=== PATIENT | female | born 1965 | race Caucasian/White ===

== ENCOUNTER 2025-01-17 09:01 | Inpatient (IN) ==
--- NOTE | 2024-05-24 15:42 | PAT Medication Instructions ---
Medication Instructions Date of Service May 24, 2024 Home Medications garlic 1,000 mg capsule 1,000 mg PO QAM Multivitamin Women 50 Plus) 1 tab PO QAM naproxen 250 mg tablet 250 mg PO UD PRN prn omega-3 fatty acids 1,000 mg PO QAM ASK your surgeon for instructions naproxen 250 mg tablet 250 mg PO UD PRN prn STOP taking 2 weeks before surgery (or as soon as possible if surgery is within 2 weeks) garlic 1,000 mg capsule 1,000 mg PO QAM omega-3 fatty acids 1,000 mg PO QAM DO NOT take the morning of surgery Multivitamin Women 50 Plus) 1 tab PO QAM NOTHING TO EAT OR DRINK AFTER MIDNIGHT Other Notes If you have any questions please call us at [phone] or [phone] or [phone] or [phone]
--- NOTE | 2024-12-18 08:49 | PAT Medication Instructions ---
Medication Instructions Date of Service December 18, 2024 Home Medications garlic 1,000 mg capsule 1,000 mg PO QAM [id number] 8 mg-folic 400 mcg-K 50 mcg-lutein 300 mcg tablet (Multivitamin Women 50 Plus) 1 tab PO QAM naproxen 250 mg tablet 500 mg PO BID omega-3 fatty acids 1,000 mg PO QAM black cohosh 200 mg capsule 200 mg PO DAILY ASK your surgeon for instructions naproxen 250 mg tablet 500 mg PO BID STOP taking 2 weeks before surgery (or as soon as possible if surgery is within 2 weeks) garlic 1,000 mg capsule 1,000 mg PO QAM omega-3 fatty acids 1,000 mg PO QAM black cohosh 200 mg capsule 200 mg PO DAILY DO NOT take the morning of surgery Multivitamin Women 50 Plus 1 tab PO QAM MORNING OF SURGERY: NOTHING TO EAT OR DRINK AFTER MIDNIGHT Other Notes If you have any questions please call us at [phone] or [phone] or [phone] or [phone]
--- NOTE | 2024-12-21 09:26 | Anesthesiology Consultation ---
Date of Service December 21, 2024 Assessment & Plan (1) Encounter for pre-operative examination: - Infectious disease screening: Per assessment on 12/21/24- No known recent infectious disease contacts or current infectious disease symptoms. - Patient acceptable risk for surgery pending surgeon-ordered PCP preop evaluation (Dr. Tatum Salas/[facility] Jessica Strickland, appt 12/26). Chart Review Chart Review: Patient seen in Pre Admission Testing Teaching & Discussion Pre-Anesthesia Teaching/Discussion Notes: Instructed NPO after midnight before surgery,except medications with 15 cc of water. Medication instructions provided according to the PAT guidelines. History Surgery Operation Date: 06/19/24 07:45 Proposed Procedures p L4-L5 Decompression and Fusion Spinal Cord Monitoring - Dakota Willams DO Operation Date: 01/17/25 07:45 Proposed Procedures p L4-L5 Decompression and Fusion with Spinal Cord Monitoring - Dakota Willams DO Height/Weight Height: 5 ft 6 in Weight: 85.2 kg Allergies Allergy/AdvReac Type Severity Reaction Status Date / Time No Known Allergies Allergy Verified 12/07/24 15:32 Medications Home Medications Medication Instructions Recorded Confirmed Last Taken garlic 1,000 mg capsule 1,000 mg PO QAM 05/23/24 12/07/24 Unknown [id number] 8 mg-folic 400 1 tab PO QAM 05/23/24 12/07/24 Unknown mcg-K 50 mcg-lutein 300 mcg tablet (Multivitamin Women 50 Plus) naproxen 250 mg tablet 500 mg PO BID 05/23/24 12/07/24 Unknown omega-3 fatty acids 1,000 mg PO QAM 05/23/24 12/07/24 Unknown black cohosh 200 mg capsule 200 mg PO DAILY 12/07/24 12/07/24 Unknown Past Medical History Medical History Bulging lumbar disc Hx of cardiac murmur states as a young adult- no issues Lumbar radiculopathy, right RLE pain Scoliosis "Slight" Exercise / Class Metabolic Activity II 4-5 Yardwork/Stairs/Walk up hill (one FS: No CP, no SOB) Past Surgical History Surgical History History of colonoscopy (2022) History of tonsillectomy History of wisdom tooth extraction Past Anesthesia History No Hx of Anesthesia Complications and No Family Hx of Anesthesia Complications History of PONV No Hx of PONV and No Hx of Motion Sickness Social History Smoking Status: Never smoker Do You Dip or Chew Tobacco: No Hx Alcohol Use: Yes Alcohol type: wine alcohol intake frequency: a few times a week Alcohol Intake Frequency Comment: 1-2 per week Hx Substance Use: No substance use type: does not use Review of Systems Patient denies chest pain, shortness of breath, dyspnea on exertion, fever, chills, cough, wheezing. Physical Exam Vital Signs BP 128/67 P 81 TEMP 97.6 SP02 99%RA RESP 16 Physical Full cervical extension range of motion. Full TMJ range of motion. TMD 3 finger breaths Mallampati Score I Dentition: intact, several crowns, + bridge #7-9 (upper front), implant #30 Lungs: clear throughout to auscultation Cardiac: regular rate and rhythm, no murmurs noted Spine: normal Carotid arteries: negative bruit Extremities: no LE edema Lab Results Anesthesia Preop Results Results Anesthesia Widget: WBC 4.50 K/ul (4.8-10.8) L 12/21/24 Hgb 12.2 g/dl (12.0-16.0) 12/21/24 Hct 34.9 % (37.0-47.0) L 12/21/24 Plt 178 K/uL (130-400) 12/21/24 Na 140 mmol/L (136-145) 12/21/24 K 4.0 mmol/L (3.5-5.1) 12/21/24 Cl 105 mmol/L (98-107) 12/21/24 CO2 29 mmol/L (21-32) 12/21/24 BUN 13 mg/dl (6-23) 12/21/24 Creat 0.72 mg/dl (0.6-1.2) 12/21/24 Glucose Level 86 mg/dl (70-99(Fasting)) 12/21/24 PT 10.6 Seconds (9.0-12.0) 12/21/24 PTT 24 Seconds (21-31) 12/21/24 INR 1.0 (0.9-1.1) 12/21/24 Urine Color Yellow 12/21/24 Urine Appearance Clear (Clear) 12/21/24 Urine pH 7.0 (4.5-7.5) 12/21/24 Urine Specific [place] 1.008 (1.000-1.030) 12/21/24 Urine Protein Negative (Negative) 12/21/24 Urine Glucose (UA) Negative (Negative) 12/21/24 Urine Ketones Negative (Negative) 12/21/24 Urine Blood Negative (Negative) 12/21/24 Urine Nitrite Negative (Negative) 12/21/24 Urine Bilirubin Negative (Negative) 12/21/24 Urine Urobilinogen Negative (Negative) 12/21/24 Urine Leukocyte Esterase Negative (Negative) 12/21/24 Blood Type A Negative 12/21/24 Antibody Screen POSITIVE A 12/21/24 Testing Laboratory Results *Blood bank aware of positive antibodies- nothing futher needed from [facility]* Electrocardiogram Date: 12/21/24 NSR at 62bpm. "Normal ECG" Chest X-Ray Date: 12/21/24 Findings: + NAD
[2025-01-17] MEDS: ACETAMINOPHEN 500 MG TAB PO SCH (09:37)
[2025-01-17] MEDS: LR 60ML/HR IV SCH (09:37)
[2025-01-17] MEDS: LR 15ML/HR IV SCH (09:37)
[2025-01-17] MEDS: CeleBREX 200 MG CAP PO SCH (09:37)
[2025-01-17] MEDS: GABAPENTIN 600 MG DOSE PO SCH (09:37)
[2025-01-17] MEDS ORDERED: PROPOFOL IV EMULSION 10 MG/ML 20 ML VIAL IV ONE (11:03)
[2025-01-17] MEDS ORDERED: DEXAMETHASONE SOD INJ 4 MG/ML VIAL ONE (11:03)
[2025-01-17] MEDS ORDERED: ROCURONIUM BROMIDE 10 MG/ML 5 ML VIAL IV ONE ×2 (11:03→12:45)
[2025-01-17] MEDS ORDERED: ONDANSETRON INJ 2 MG/ML 2 ML VIAL ONE (11:03)
[2025-01-17] MEDS ORDERED: fentaNYL citrate PF 100 MCG/2 ML VIAL ONE (11:03)
[2025-01-17] MEDS ORDERED: LIDOCAINE 2% 2 ML VIAL/AMP(20MG/ML) INFIL ONE (11:03)
[2025-01-17] MEDS ORDERED: MIDAZOLAM HCL 1 MG/ML 2ML VIAL ONE ×2 (11:03→11:53)
[2025-01-17] MEDS ORDERED: ePHEDrine sulfate 50 MG/ML AMP IV PRN (11:12)
[2025-01-17] MEDS ORDERED: ATROPINE SULFATE 0.1 MG/ML 10ML SYR IV PRN (11:12)
[2025-01-17] MEDS ORDERED: ONDANSETRON INJ 2 MG/ML 2 ML VIAL IV PRN ×2 (11:12→14:57)
--- NOTE | 2025-01-17 11:17 | History & Physical Bridge Note ---
Date of Service January 17, 2025 History & Physical Bridge Note I have examined the patient, reviewed the History & Physical and in the interval since the performance of the History & Physical I have noted the following changes of clinical significance: no changes noted
--- NOTE | 2025-01-17 11:18 | History & Physical Report ---
Date of Service January 17, 2025 Assessment & Plan (1) Spondylolisthesis, lumbar region: Plan: L4-L5 decompression fusion History of Present Illness Chief Complaint: Back and leg pain Primary Care Provider: Tatum Salas MD This is a 51-year-old female who presents with persistent back and leg pain. After failing extensive course of nonoperative care is here for surgical intervention. Allergies Allergy/AdvReac Type Severity Reaction Status Date / Time No Known Allergies Allergy Verified 01/17/25 09:06 Home Medications Medication Instructions Recorded Confirmed Type garlic 1,000 mg capsule 1,000 mg PO QAM 05/23/24 01/17/25 History jauehmpr-xyfh-nptb 8 mg-folic 400 1 tab PO QAM 05/23/24 01/17/25 History mcg-K 50 mcg-lutein 300 mcg tablet (Multivitamin Women 50 Plus) naproxen 250 mg tablet 500 mg PO BID 05/23/24 01/17/25 History omega-3 fatty acids 1,000 mg PO QAM 05/23/24 01/17/25 History black cohosh 200 mg capsule 200 mg PO DAILY 12/07/24 01/17/25 History acetaminophen 500 mg tablet 1,000 mg PO Q6H PRN Pain 01/17/25 01/17/25 History cholecalciferol (vitamin D3) 125 125 mcg PO DAILY 01/17/25 01/17/25 History mcg (5,000 unit) tablet (Vitamin D3) Past Med/Surg History Problem List (Updated 01/17/25 @ 11:18 by Dakota Willams DO) Spondylolisthesis, lumbar region Encounter for pre-operative examination Medical History Bulging lumbar disc Hx of cardiac murmur states as a young adult- no issues Lumbar radiculopathy, right RLE pain Scoliosis "Slight" Surgical History History of colonoscopy (2022) History of tonsillectomy History of wisdom tooth extraction Social History Smoking Status: Never smoker Second Hand Exposure: No; Do You Dip or Chew Tobacco: No; Tobacco Cessation Education Requested by Patient: No Hx Alcohol Use: Yes Alcohol type: wine Hx Substance Use: No Preferred Language: [place]ian Communication Ability: Effective First Aid Teacher Required: No Beliefs That Will Affect Care: None Current Living Situation: Spouse Other Information That Helps Us Care for You: No Feels Safe at Home: Yes Safety Concerns: Feels Safe At This Time Assistive Devices: None Physical Exam Physical Exam: Patient is alert and oriented Heart regular in rhythm Lungs clear Results & Data Results & Data Vital Signs (Past 12 Hours) Vital Signs Temp Pulse Resp BP Pulse Ox O2 Del Method 01/17/25 09:14 36.5 C 76 18 131/88 97 Room Air
[2025-01-17] MEDS: ceFAZolin 2000MG 2,000 MG/15 ML SYR IV SCH ×2 (11:49→20:43)
[2025-01-17] MEDS ORDERED: PHENYLEPHRINE 100MCG/ML 5ML SYR ONE (12:30)
[2025-01-17] MEDS: BUPIVACAINE/EPINEPHRINE 0.25% 1:200,000 30 ML VIAL ONE (12:40)
[2025-01-17] MEDS ORDERED: ePHEDrine sulfate 50 MG/5 ML SYR ONE (12:46)
[2025-01-17] MEDS: ceFAZolin 330 MG/ML 1 GM VIAL ONE (13:20)
[2025-01-17] MEDS: FLOSEAL HEMOSTATIC MATRIX 10ML TOP ONE (13:20)
[2025-01-17] MEDS ORDERED: SUGAMMADEX SODIUM 200 MG/2 ML VIAL IV ONE ×2 (13:21→13:22)
--- NOTE | 2025-01-17 13:25 | Operative Report ---
Post Operative Report Pre & Post Diagnosis Operation Date: 01/17/25 11:25 Pre-Op Diagnosis: #1 lumbar spondylolisthesis with radiculopathy #2 lumbar spinal stenosis Post-Op Diagnosis: Same I identified the patient and participated in the time-out.: Yes Procedure Operation Date: 01/17/25 11:25 Actual Procedures #1 lumbar decompression with bilateral medial facetectomies and foraminotomies L3-L4 L4-L5. #2 posterior spinal fusion L4-5 #3 placement posterior instrumentation L4-L5 using Chao. #4 interbody fusion L4-5 and #5 placement Spira 14 x 26 mm x 2 at L4-5 #6 placement locally harvested morselized autograft in the posterior gutters. #7 placement infuse collagen sponge, with Koros in the posterior lateral gutters and os design and interbody space. #8 application of versa wrap of the exposed dura. Surgeon Dakota Willams, Varnish Maker Oscar Meek Estimated Blood Loss 100 Findings Consistent with Post-Op Diagnosis Specimens None Indications This is a 51-year-old female presents manage diagnosis with failing course of nonoperative care is here for surgical invention. Description of Procedure Patient was met with identified informed consent obtained. Patient was then taken to the operative suite underwent intubation placed in a prone position on the [place] table top of the Tray frame. All bony promises well-padded eyes inspected to ensure no external pressure placed upon them. This point lumbar spine was prepped and draped in a normal sterile fashion. Sharp dissection with the assistance of Bovie cautery was performed down to and exposing the lamina and transverse processes of L4-L5. From a caudal cephalad fashion complete laminectomy of L4 was performed including bilateral medial facetectomies and foraminotomies addressing severe neural compression. This is followed by partial laminectomy L3 with bilateral medial facetectomies to address all subarticular stenosis. Pedicle screws were then placed in L4-L5 bilaterally with assistance of fluoroscopy in the process bharati placed. By way of transforaminal approach on the right discectomy of L4-L5 was performed endplates corrected to subcortical bleeding bone and a 14 x 26 mm spiral cage filled with os design bone graft apposition. Then proceeded to the left transforaminal region at L4-5. Discectomy performed endplates guided to subcortical main bone and a second 14 x 26 mm spiral cage filled with os design bone graft tapped in position. The rods were then compressed locked in a final position bilaterally. The transverse processes of L4-L5 burred to subcortical removed. Infuse collagen sponge combined with Koros and local autograft placed in the posterior gutters. 15 round [place] drain inserted. First wrap placed over the exposed dura. The incision was then closed with 1 Vicryl and fascia 2-0 Vicryl subcutaneously and 4 Monocryl for final skin closure. Steri-Strips sterile dressing placed. Patient waken taken to PACU in stable condition. Please note spinal cord monitoring was utilized at the procedure no changes noted. Oscar kincaid was present at the entire surgery and brought the patient positioning complex portion of the surgery and final skin closure. Im ordering 10 grams of Collagen Powder ([facility] A6010 Primary Dressing) and 10 bordered super absorbent ([facility] A6196 Secondary Dressing) to treat an incision wound that was caused by a spine procedure. The incision is approximately 2 cm(W) x 2 cm(L) down to the spinal column and epidural space 2 cm (D) in size and is a full thickness wound showing no signs of infection. Collagen comes in 1 gram packets so 10 packets were ordered. Given the size of the wound, with moderate exudate I chose to order a 10 day supply. The patient will be provided instructions for proper application of the collagen wound kit. The patient will be asked to apply the collagen powder daily and then cover it with sterile dressings dispensed. Collagen was selected as I expect the collagen to attract monocytes and fibroblasts, act as a sacrificial substrate for MMPs, and ultimately proved a matrix for tissue and vessel growth. The collagen will act as a primary dressing in this scenario. It is medically necessary for proper healing of these wounds to improve bioavailability and contact with each wound surface, this is also to help prevent infection of wounds and promote healing ultimately leading to a better healing outcome and limit the risk of infection. I attest to the content of the Intraoperative Record and any orders documented therein. Any exceptions are noted below.
--- NOTE | 2025-01-17 13:34 | Fluoroscopy Report ---
FL lumbar spine 2-3V CLINICAL HISTORY: L4-L5 DECOMPRESSION AND FUSION COMPARISON STUDY: None pertinent FLUOROSCOPY TIME: 16.8 seconds FLUOROSCOPY IMAGES: 2 EXPOSURE DOSE: 11.35 mGy FINDINGS: Fluoroscopic guidance was provided for a laminectomy and fusion. IMPRESSION: Refer to procedural report for evaluation based upon real time fluoroscopic observation. ACT 112: Negative or not required by law. Electronically signed by: Lawanda Steele M.D. 01/17/2025 1:33 PM
[2025-01-17] MEDS: fentaNYL citrate PF 100 MCG/2 ML VIAL IV PRN (13:53)
[2025-01-17] MEDS: HYDROmorphone INJ 1 MG/ML SYRINGE IV PRN (14:11)
[2025-01-17] MEDS ORDERED: bisacodyL 10 MG SUPP PR PRN (14:57)
[2025-01-17] MEDS ORDERED: ONDANSETRON 4 MG OD TAB PO PRN (14:57)
[2025-01-17] MEDS ORDERED: METOCLOPRAMIDE HCL INJ 5 MG/ML 2 ML VIAL IV PRN (14:57)
[2025-01-17] MEDS ORDERED: DO NOT ADMINISTER PNEUMOCOCCAL VACCINE PRN (14:57)
[2025-01-17] MEDS ORDERED: ACETAMINOPHEN 500 MG TAB PO PRN ×2 (14:57)
[2025-01-17] MEDS ORDERED: ALUMINUM/MAGNESIUM SUSP 30 ML UDC PO PRN (14:57)
[2025-01-17] MEDS ORDERED: LORazepam 2 MG/1 ML VIAL IV PRN (14:57)
[2025-01-17] MEDS ORDERED: LORazepam 0.5 MG TAB PO PRN (14:57)
[2025-01-17] MEDS ORDERED: diphenhydrAMINE Capsule 25 MG CAP PO PRN (14:57)
[2025-01-17] MEDS ORDERED: HYDROmorphone INJ 0.5 MG/0.5 ML SYR IV PRN (14:57)
[2025-01-17] MEDS ORDERED: HYDROmorphone INJ 1 MG/ML SYRINGE IV PRN (14:57)
[2025-01-17] MEDS ORDERED: ACETAMINOPHEN 1,000 MG/100 ML VIAL IV PRN (14:57)
[2025-01-17] MEDS ORDERED: PROMETHAZINE 12.5 MG/50.5 ML BAG IV PRN (14:57)
[2025-01-17] MEDS ORDERED: DO NOT ADMINISTER FLU VACCINE PRN (14:57)
[2025-01-17] MEDS ORDERED: MAGNESIUM HYDROXIDE SUSP 30 ML UDC PO PRN (14:57)
[2025-01-17] MEDS ORDERED: NALOXONE HCL 0.4 MG/1 ML VIAL/CARP IV PRN (14:57)
[2025-01-17] MEDS ORDERED: hydrOXYzine HCl 25 MG TAB PO PRN (14:57)
[2025-01-17] MEDS ORDERED: SOD PHOSPHATE/SOD BIPHOSPHATE ENEMA 132 ML BTL PR PRN (14:57)
[2025-01-17] MEDS ORDERED: FAMOTIDINE 20 MG TAB PO PRN (14:57)
--- NOTE | 2025-01-17 15:01 | Anesthesiology Progress Note ---
Date of Service January 17, 2025 Anesthesia Post Procedure Vital Signs Vital Signs: Temp Pulse Pulse Resp BP BP Pulse Ox 01/17/25 14:58 36.2 C L 73 16 133/84 99 01/17/25 14:35 36.5 C 77 12 130/70 92 01/17/25 14:20 78 12 131/74 95 01/17/25 14:10 81 15 121/73 100 01/17/25 14:00 77 12 146/89 H 100 01/17/25 13:50 85 14 131/92 96 01/17/25 13:43 36.5 C 97 H 16 154/75 H 97 01/17/25 09:14 36.5 C 76 18 131/88 97 O2 Del Method O2 Flow Rate 01/17/25 14:58 Room Air 01/17/25 14:35 Room Air 0 01/17/25 14:20 Room Air 0 01/17/25 14:10 Oxymask 4 01/17/25 14:00 Oxymask 4 01/17/25 13:50 Oxymask 4 01/17/25 13:43 Oxymask 4 01/17/25 09:14 Room Air Pain Intensity Lower Back: Pain Intensity: 4 Transfer of Care Handoff Completed per policy Notes Mental Status: alert / awake / arousable and participated in evaluation Patient Amnestic to Procedure: Yes Nausea / Vomiting: adequately controlled Pain: adequately controlled Airway Patency, RR, SpO2: stable & adequate BP & HR: stable & adequate Hydration State: stable & adequate Anesthetic Complications: no major complications apparent and Pt Satisfied with anesthetic care
[2025-01-17] MEDS: oxyCODONE HCL IR 5 MG TAB (IMMEDIATE RELEASE) PO PRN (15:51)
[2025-01-17] MEDS: traMADol HCL 50 MG TABLET PO PRN (17:45)
[2025-01-17] MEDS: DOCUSATE SODIUM/SENNA 50/8.6MG TAB PO SCH (20:43)
[2025-01-18] MEDS: POLYETHYLENE (MIRALAX) 17 GM PACK PO SCH (05:53)
[2025-01-18 07:19] LABS: Basophils # (auto) 0.02 K/uL (0.00-0.20); Basophils % (auto) 0.2 %; Eosinophils # (auto) 0.01 K/uL (0.00-0.50); Eosinophils % (auto) 0.1 %; Hematocrit (blood only) 33.3 % (37.0-47.0); Hemoglobin 11.7 g/dl (12.0-16.0); Immature Granulocytes # (auto) 0.05 K/uL (0.01-0.20); Immature Granulocytes % (auto) 0.4 %; Lymphocytes # (auto) 1.52 K/uL (1.20-3.40); Lymphocytes % (auto) 13.4 %; Mean Corpuscular Hemoglobin 31.7 pg (25.0-34.0); Mean Corpuscular Hgb Conc 35.1 g/dL (32.0-36.0); Mean Corpuscular Volume 90.2 fL (80.0-100.0); Mean Platelet Volume 9.5 fL (9.4-12.4); Monocytes # (auto) 0.69 K/uL (0.11-0.59); Monocytes % (auto) 6.1 %; Neutrophils # (auto) 9.08 K/uL (1.40-6.50); Neutrophils % (auto) 79.8 %; Platelet Count 191 K/uL (130-400); RDW Coefficient of Variation 13.2 % (11.5-14.5); RDW Standard Deviation 42.5 fL (36.4-46.3); Red Blood Count 3.69 M/uL (4.20-5.40); White Blood Count 11.37 K/ul (4.8-10.8)
[2025-01-18 07:38] LABS: Calcium 9.1 mg/dl (8.6-10.3); Potassium 4.1 mmol/L (3.5-5.1)
[2025-01-18 07:44] LABS: BUN Creatinine Ratio 14.5 (10-20); Creatinine Clr Calc Pharmacy 87.8 ml/min
[2025-01-18] MEDS: CHOLECALCIFEROL 125 MCG (5,000 UNITS) TAB PO SCH (08:11)
[2025-01-18] MEDS: dexAMETHasone 6 MG in SYRINGE 0 ML IV SCH (08:11)
[2025-01-18] MEDS: MULTIVITAMIN TAB PO SCH (08:11)
--- NOTE | 2025-01-18 08:39 | Orthopedic Progress Note ---
Date of Service January 18, 2025 Assessment & Plan (1) Spondylolisthesis, lumbar region: Plan: Patient is stable status post lumbar decompression fusion at L4-5. Overall she is very pleased with her response to surgery so far. We continue with ambulation and gait training today through physical therapy. We are going to continue with GI DVT prophylaxis and pain control measures. If anything progresses nicely throughout the day today we would likely be able to get her home tomorrow. Admission and Anticipated Discharge Date Admission Date: January 17, 2025 Subjective Patient was seen postoperatively Bogdan bedside in room 377. She is doing quite well this morning. Her pain has been controlled overnight. She states she is hungry she has been on a clear diet. She is not having a pain going down her leg she has some soreness in her back but is controlled with pain medication. She did get some rest last night. She denies any other numbness, tingling, or paresthesias. Physical Exam Physical Exam: On exam she is alert and oriented. She appears comfortable. She is able to move her legs to gravity. Her strength and sensation are both intact. Her dressing is clean dry and intact her [place] drain is in place and holding suction she had 30 cc of drainage overnight she had 50 on the evening shift. Her abdomen soft nontender her calves are supple and nontender. Results & Data Vital Signs (Past 12 Hours) Vital Signs Temp Pulse Resp BP BP Pulse Ox O2 Del Method 01/18/25 07:29 36.7 C 73 16 123/67 96 Room Air 01/18/25 02:53 36.7 C 68 18 107/67 98 Room Air 01/17/25 23:33 36.5 C 66 16 114/69 97 Room Air
[2025-01-19 07:41] VITALS: BP 112/74; PULSE 85; RESP 20; TEMP 98.1; O2SAT 99
--- NOTE | 2025-01-19 09:52 | Discharge Summary ---
Date of Service January 19, 2025 Admission HPI Per Admitting Provider This is a 51-year-old female who presents with persistent back and leg pain. After failing extensive course of nonoperative care is here for surgical intervention. Principal Diagnosis Lumbar spondylolisthesis with radiculopathy Discharge Data Allergies Allergy/AdvReac Type Severity Reaction Status Date / Time No Known Allergies Allergy Verified 01/17/25 09:06 Procedures Performed Operation Date: 01/17/25 11:25 Actual Procedures p L4-L5 Decompression and Fusion, Spinal Cord Monitoring(Not Applicable) - Dakota Willams DO Ordered Studies 01/17/25 11:25 [place] lumbar spine 2-3V Routine Hospital Course (1) Spondylolisthesis, lumbar region: Patient underwent lumbar decompression fusion tolerated this well was taken orthopedic for postoperative. Postop patient progressed appropriately. Pain controlled. Extra strength testing. Subsidy discharged home. Discharge orders and instructions found in chart for further review. Total Time Total Time Spent Total Time Spent (In Minutes): 20 minutes Discharge Plan Discharge Items Patient Disposition: Home - Self-Care Reason For Visit: Lumbar Disc Disease with Radiculopathy, Spondyloli Discharge Diagnosis: Lumbar spondylosis with radiculopathy Activity: As commented below Non-emergency contact: Primary Care Provider Call non-emergency contact if: you have any medication questions Follow-up/Referrals: Tatum Salas MD [Primary Care Provider] - Diet: Regular Addtl Attending Provider Instructions: ACTIVITY RECOMMENDATIONS: SELF CARE INSTRUCTIONS AFTER THORACIC/LUMBAR FUSIONS 1. You may walk to your tolerance. It is good exercise for your legs and back. Expect some back and intermittent leg aches and pains. 2. You may perform "counter-top" level activities (make a sandwich, nadira with a project, etc.). 3. No bending or lifting of more than 10 pounds or back twisting of any nature (roll like a log when turning in bed). 4. You may ride in a car for 20-30 minutes at a time. No driving until after your first visit with your doctor. 5. Frequent changes of position and restricting sitting to 30 minutes at a time will help limit the amount of back spasms and stiffness you may experience. 6. You may discontinue the use of ambulatory aids (cane, crutches, etc.) once your strength and confidence allow. 7. You may telecom coordinator the shower and let water strike your incision when you arrive home at least once daily. Do not take a tub bath, sit in a hot tub or go into a swimming pool until after your first recheck in the office. 8. You may resume previous diet. SPECIAL CARE INSTRUCTIONS: VERY IMPORTANT TO READ AND REVIEW A. Your surgical incision has been closed with a cosmetic suture under the skin that will dissolve in about 6 weeks. In 14 days, you can use a pair of clean scissors and cut the suture that is left outside of the skin at the ends of your incision. 1. The small skin tapes can be removed 7 days after surgery if they have not fallen off by that point. 2. You may keep the wound open to air as much as possible to promote healing after post-op day number 5 unless told otherwise by your doctor. 3. If you think the wound looks like it is becoming infected (redness or worsening drainage) and/or you are experiencing fever, chill or worsening back pain and muscle spasms, contact the office so that we may evaluate you as soon as possible. B. Complications are uncommon, but please contact us if you have any signs or symptoms of: 1. wound infection (fever higher than 102.5 degrees F, redness, separation of wound, drainage, or increasing pain from the incision) 2. blood clots in legs (pain, swelling, redness and warmth in legs) 3. urinary tract infection (fever higher than 102.5 degrees F, burning upon urination or increased frequency of urination) 4. nerve problems (inability to walk on your toes or heels, numbness, loss of bowel or bladder control) 5. any other symptoms that concern you C. Please call the office at if you have any concerns or questions about your operation or recovery. D. No smoking! Smoking drastically decreases the chance of a solid fusion. E. Do not take any anti-inflammatory medications (Indocin, Advil, Motrin, Aspirin, Naprosyn, etc.) as these may inhibit the chance of a solid fusion. Tylenol is okay to take for pain. MANAGING PAIN AFTER SPINAL SURGERY 1. Narcotic medication is intended for short-term use and will be provided for surgical pain. Surgical pain usually lasts for a period of 4-6 weeks. Narcotic medication includes Percocet, Vicodin, Darvocet, Tylenol #3 or Lortab. 2. Longer-term pain is more appropriately treated with non-narcotic medication such as Tylenol ES. 3. Muscle spasm is not appropriately treated with narcotics. Muscle relaxers such as Soma, Flexeril or Skelaxin can be used along with Tylenol ES. 4. Remember that we all live with some "aches and pains". This is not unusual or uncommon after an injury or as we get older. a. Back pain is expected and may include muscle spasms for 4 to 6 weeks after surgery. The pain should gradually improve. If the pain worsens for no apparent reason, please contact the office. b. Intermittent leg pain may also be experienced and should not be concerned about unless it worsens for no apparent reason. If so, please contact the office. 5. We will provide appropriate medication within the normal guidelines of their prescribed use. We will also be very cautious and aware of potential abuse and extended duration of patients' medication needs. a. Pain medications are for your comfort and to assist with sleep and rest so that the tissue can heal. They are not provided in order to return to normal activity and should not be used through the day. To do so or worsening pain at night can result from ongoing tissue damage and development of tolerance to the prescribed medicine. 6. Please allow 2-3 days to process refills. Prescriptions will not be mailed but must be picked up at the office. FOLLOW UP VISIT: Keep your scheduled follow-up appointment. Any questions, please call the office at . Pending Studies at Discharge: No Stand-Alone Forms: My [facility], Smoking Cessation Medications and CT Order Prescriptions: New tramadol 50 mg tablet 50 mg PO Q6H PRN (Reason: pain, moderate) Qty: 30 0RF oxycodone 5 mg tablet 5 mg PO Q6H PRN (Reason: pain) Qty: 30 0RF Continued garlic 1,000 mg Capsule 1,000 mg PO QAM [place] 3 Fish Oil Capsule 1,000 mg PO QAM Multivitamin Women 50 Plus 8 mg iron-400 mcg-50 mcg Tablet 1 tab PO QAM black cohosh 200 mg Capsule 200 mg PO DAILY acetaminophen [Tylenol Ex Str Arthritis Pain] 500 mg Tablet 1,000 mg PO Q6H PRN (Reason: Pain) cholecalciferol (vitamin D3) [Vitamin D3] 125 mcg (5,000 unit) Tablet 125 mcg PO DAILY Discontinued naproxen 250 mg Tablet 500 mg PO BID Patient Comments: two PO in AM and one Q PM prn Discharge Orders: Discharge Order (Routine); Ordered 01/19/25 Ordered By: Dakota Willams Admission Data Admit Date/Time: 01/17/25 13:28 Attending Provider: Dakota Willams Admit Provider: Dakota Willams Primary Care Provider: Tatum Salas
== END 2025-01-19 12:50 | disposition home or self-care (01) | DRG 402 ==
LOC: ASU 09:01 → 3N 13:28